=== PATIENT | female | born 1940 | race Caucasian/White ===

== ENCOUNTER 2017-07-07 08:35 | Outpatient (CLI) | payer MEDICARE, BC ==
[2017-07-07 12:59] VITALS: BP 140/74; BMI 26.6
[2017-07-07] MEDS ORDERED: CALAN120 MG PO (13:01)
[2017-07-07] MEDS ORDERED: TOPROL XL50 MG PO (13:02)
[2017-07-07] MEDS ORDERED: OMEPRAZOLE20 M1 PO (13:03)
--- NOTE | 2017-07-07 15:27 | NUR ---
SECOND UNIT [facility]'S TRANSFUSING, PATIENT CALLS STATING NEED TO URINATE. ASSISTED PATIENT TO UNHOOK FROM VITAL SIGN MONITORING, PATIENT AMBULATES INDEPENDENTLY TO BATHROOM IN ROOM
--- NOTE | 2017-07-07 16:33 | NUR ---
PATIENT LYING IN BED, EYES CLOSED, EASILY AROUSABLE, DENIES COMPLAINTS, VSS. SECOND UNIT [facility] TRANSFUSING TO RIGHT AC PIV, APPROX 40 CC REMAINING
--- NOTE | 2017-07-07 16:54 | NUR ---
2ND UNIT [facility] FINISHED TRANSFUSING, PATIENT SITTING ON SIDE OF BED, DENIES COMPLAINTS, PATIENT AWARE OF NEED TO STAY ONE HOUR TO MONITOR FOR TRANSFUSION REACTION, PATIENT PLEASANT AND AGREEABLE
== END 2017-07-07 17:55 | disposition home or self-care (01) ==
LOC: D.CT 08:35
DX: D64.9 Anemia, unspecified (principal); K92.1 Melena